=== PATIENT | male | born 1940 | race Caucasian/White ===

== ENCOUNTER 2019-02-13 14:28 | Inpatient (IN) | payer MEDICARE, OTHER ==
[~2019-02-13] VITALS: Ht 175.3 cm; Wt 70.3 kg
--- NOTE | 2019-02-13 14:30 | NUR ---
BIB RA 88 FROM HOME,C/O GENERALIZED WEAKNESS. CHANGED INTO GOWN, ATTACHED TO THE MONITOR. A/OX3, BREATHING EVEN AND UNLABORED, NO DISTRESS NOTED. DR. ZHAO AT BEDSIDE FOR EVAL.
[2019-02-13] MEDS ORDERED: ASPIRIN 81 MG TAB.CHEW PO ONE (15:00)
[2019-02-13 15:02] LABS: BASOPHILS # (AUTO) 0.1 /CMM (0.0-0.2); BASOPHILS % (AUTO) 1.1 % (0.0-2.0); EOSINOPHILS % (AUTO) 0.8 % (0.0-6.0); HEMATOCRIT 37 % (39-51); HEMOGLOBIN 12.6 g/dL (13.5-17.5); LYMPHOCYTES # (AUTO) 0.5 /CMM (0.8-4.8); LYMPHOCYTES % (AUTO) 10.1 % (20.0-44.0); MEAN CORPUSCULAR HGB CONC 34 g/dl (31.0-36.0); MEAN CORPUSCULAR VOLUME 89 fL (80-96); MONOCYTES # (AUTO) 0.6 /CMM (0.1-1.30); MONOCYTES % (AUTO) 11.5 % (2.0-12.0); NEUTROPHILS # (AUTO) 4.1 /CMM (1.8-8.9); NEUTROPHILS % (AUTO) 76.5 % (43.0-81.0); PLATELET COUNT (AUTO) 223 /CMM (150-450); RED BLOOD CELL COUNT(AUTO) 4.17 MIL/uL (4.5-6.0); WHITE BLOOD COUNT (AUTO) 5.4 K/uL (4.3-11.0)
[2019-02-13 15:09] LABS: CARBON DIOXIDE 30 mmol/L (21-32); CHLORIDE 102 mmol/L (98-107); CREATININE 2.1 mg/dL (0.6-1.3); GLUCOSE 160 mg/dL (74-106); POTASSIUM 3.4 mmol/L (3.5-5.1); SODIUM SERUM 139 mmol/L (136-145); UREA NITROGEN, BLOOD 37 mg/dL (7-18)
[2019-02-13] MEDS ORDERED: RANI150T8 PO (15:11)
[2019-02-13] MEDS ORDERED: TAMS-12 PO (15:11)
[2019-02-13] MEDS ORDERED: APIX2.5T PO (15:11)
[2019-02-13] MEDS ORDERED: FURO40TA5 PO (15:11)
[2019-02-13] MEDS ORDERED: ATOR40TA PO (15:11)
[2019-02-13] MEDS ORDERED: OXYB10TA PO (15:11)
[2019-02-13] MEDS ORDERED: METF-440 PO (15:13)
[2019-02-13 15:16] LABS: ALANINE AMINOTRANSFERASE 25 U/L (12-78); ALBUMIN 3.4 g/dL (3.4-5.0); ALKALINE PHOSPHATASE 104 U/L (46-116); ASPARTATE AMINOTRANSFERASE 17 U/L (15-37); BILIRUBIN,DIRECT 0.1 mg/dL (0.0-0.2); BILIRUBIN,TOTAL 0.7 mg/dL (0.2-1.0); CALCIUM, SERUM 8.3 mg/dL (8.5-10.1); TOTAL PROTEIN, SERUM 6.6 g/dL (6.4-8.2)
[2019-02-13] MEDS ORDERED: ASPIRIN 81 MG TAB.CHEW ONE (15:16)
[2019-02-13] MEDS ORDERED: AMIO400T5 PO (15:19)
[2019-02-13] MEDS ORDERED: AMLO10TA7 PO (15:19)
[2019-02-13] MEDS ORDERED: IV NS 0.9% 1,000 ML BAG IV ONE (15:30)
[2019-02-13 16:26] LABS: APPEARANCE,URINE Clear (CLEAR); BILIRUBIN,URINE Negative (NEGATIVE); BLOOD, URINE Moderate Ery/uL (NEGATIVE); COLOR,URINE Yellow (YELLOW); KETONES,URINE Negative (NEGATIVE); LEUKOCYTE ESTERASE ,URINE Negative (NEGATIVE); NITRITE, URINE Negative (NEGATIVE); PROTEIN,URINE Negative (NEGATIVE); UGLUCOSE Negative (NEGATIVE); UROBILINOGEN,URINE 0.2 EU/dL (0.2)
[2019-02-13 16:34] LABS: BACTERIA,URINE Few /HPF (None Seen); SQUAMOUS EPITHELIAL CELL,UR Few /HPF (None Seen); WBC,URINE 0-2 /HPF (0-3)
--- NOTE | 2019-02-13 16:48 | NUR ---
REPORT GIVEN TO DENIS SCHMID.
[2019-02-13] MEDS ORDERED: MAG HYDROX/AL HYDROX/SIMETH 30 ML UDC PO PRN (17:00)
[2019-02-13] MEDS ORDERED: MAGNESIUM HYDROXIDE 30 ML UDC PO PRN (17:00)
[2019-02-13] MEDS ORDERED: ONDANSETRON HCL/PF 4 MG/2 ML VIAL IVP PRN (17:00)
[2019-02-13] MEDS ORDERED: ACETAMINOPHEN 325 MG TABLET PO PRN (17:00)
[2019-02-13] MEDS ORDERED: Z GUARD REMEDY 2 OZ OINT TP PRN (17:00)
[2019-02-13] MEDS ORDERED: METFORMIN 500 MG TABLET PO SCH (17:00)
[2019-02-13] MEDS ORDERED: ZOLPIDEM TARTRATE 5 MG TABLET PO PRN (17:00)
--- NOTE | 2019-02-13 17:23 | NUR ---
SPEECH THERAPISTBUSINESS INSURANCE AGENT NOTES Received Patient via gurney from ER at this time. Patient is in bed resting. A/O x 4. VS stable with no acute distress. Breathing even and unlabored on room air with no respiratory distress. Denies pain at this time. Patient refuses skin assessment and states, "my skin is okay." Telemonitor in place and operational reading AV Pacing with BBB. 18g PIV on LAC clean, dry, intact and flushing well. Seen by Delano ALONSO and Yefri ALONSO. Safety precautions in place. Bed locked and set to lowest position with side rails x 2. Call light within reach. Will continue to monitor.
--- NOTE | 2019-02-13 18:00 | NUR ---
PATIENT TRANSFERRED TO ROOM 312-1 VIA ACLS PROTOCOL. PATIENT IN STABLE CONDITION, NAD. VSS.
--- NOTE | 2019-02-13 18:59 | NUR ---
RESIDENTIAL APPRAISER NOTES Per Yefri, bladder scan done and read >999ml. MD ordered to place BONE CATH. Unable to place BONE d/t history of prostate problems. Patient did not tolerate well and asked to stop. Will endorse to oncoming shift.
[2019-02-13 19:29] LABS: CREATININE, URINE 71.1 MG/DL (30.0-125.0); URINE TOTAL PROTEIN 9.4 mg/dL (0-11.9)
--- NOTE | 2019-02-13 19:30 | NUR ---
RN NOTES RECEIVED PT.A/OX4, AV PACING ON TELE MONITOR HR-70, DAYSHIFT NURSE HAD TRY TO INSERT A BONE CATHETER BUT THERE'S SOME RESISTANCE,PER PAT. HE HAS PROSTATE PROBLEM, WILL CALL MD TO GET AN ORDER FOR A COUDETTE, [id number], CALL LIGHT WITHIN REACH, CONTINUE TO MONITOR
[2019-02-13] MEDS: TAMSULOSIN 0.4 MG CAP.SR.24H PO SCH (19:35)
[2019-02-13] MEDS: OXYBUTYNIN CHLORIDE 5 MG TABLET PO SCH (19:35)
[2019-02-13 20:00] VITALS: BP 169/73
--- NOTE | 2019-02-13 20:29 | NUR ---
BOOTH OPERATOR CLOSING NOTES Patient in bed resting. A/O x 4. VS stable with no acute distress. Breathing even and unlabored on room air with no respiratory distress. Patient stated mild pain and discomfort from BONE CATH insertion. Will endorse to oncoming shift. Telemonitor in place and operational reading AV Pacing with BBB. 18g PIV on LAC clean, dry, intact and flushing well. Safety precautions in place. Bed locked and set to lowest position with side rails x 2. Call light within reach. Will endorse plan of care to oncoming shift.
[2019-02-13] MEDS: APIXABAN 2.5 MG TABLET PO SCH (20:36)
[2019-02-13] MEDS: HYDROCODONE/APAP 5/325MG 1 EACH TABLET PO PRN (20:37)
--- NOTE | 2019-02-13 20:40 | NUR ---
RN NOTES GOT AN ORDER FROM DR. HARGROVE BONE CATHETER ( PRERNA) WITH LIDOCAINE JEL , BECAUSE DAYSHIFT NURSE WAS TRYING TO INSERT A BONE CATHETER EARLIER AND THERE WAS A RESISTANCE AND PER PT. HE HAS BPH.. ORDER NOTED AND CARRIED OUT
[2019-02-13] MEDS ORDERED: LIDOCAINE 2% JEL 5 ML TUBE MC ONE (21:00)
--- NOTE | 2019-02-13 21:30 | NUR ---
RN NOTES ICU CHARGE NURSE CAME AND INSERTED THE BONE (COUDETTE), PT. TOELRATED FAIRLY
--- NOTE | 2019-02-13 23:21 | NUR ---
SHARMAINE NOTES COMPLAINED OF HEADACHE, TYLENOL 650MG PO GIVEN ORDERED Addendum: 02/13/19 at 2322 by WENDIE MCKEON RN WRONG PATIENT
[2019-02-14] VITALS: BP 139/66
[2019-02-14 03:13] LABS: BASOPHILS # (AUTO) 0.1 /CMM (0.0-0.2); BASOPHILS % (AUTO) 1.5 % (0.0-2.0); EOSINOPHILS % (AUTO) 1.7 % (0.0-6.0); HEMATOCRIT 36 % (39-51); HEMOGLOBIN 12.4 g/dL (13.5-17.5); LYMPHOCYTES # (AUTO) 0.7 /CMM (0.8-4.8); MEAN CORPUSCULAR HGB CONC 34 g/dl (31.0-36.0); MEAN CORPUSCULAR VOLUME 89 fL (80-96); MONOCYTES # (AUTO) 0.6 /CMM (0.1-1.30); MONOCYTES % (AUTO) 12.5 % (2.0-12.0); NEUTROPHILS # (AUTO) 3.7 /CMM (1.8-8.9); NEUTROPHILS % (AUTO) 71.3 % (43.0-81.0); PLATELET COUNT (AUTO) 199 /CMM (150-450); RED BLOOD CELL COUNT(AUTO) 4.07 MIL/uL (4.5-6.0); WHITE BLOOD COUNT (AUTO) 5.1 K/uL (4.3-11.0)
[2019-02-14 03:37] LABS: ALANINE AMINOTRANSFERASE 20 U/L (12-78); ALBUMIN 3.1 g/dL (3.4-5.0); ALKALINE PHOSPHATASE 93 U/L (46-116); ASPARTATE AMINOTRANSFERASE 15 U/L (15-37); BILIRUBIN,TOTAL 0.6 mg/dL (0.2-1.0); CALCIUM, SERUM 8.1 mg/dL (8.5-10.1); CARBON DIOXIDE 28 mmol/L (21-32); CHLORIDE 103 mmol/L (98-107); CREATININE 1.8 mg/dL (0.6-1.3); GLUCOSE 110 mg/dL (74-106); MAGNESIUM 1.7 mg/dL (1.8-2.4); PHOSPHORUS 3.6 mg/dL (2.5-4.9); POTASSIUM 3.4 mmol/L (3.5-5.1); SODIUM SERUM 140 mmol/L (136-145); TOTAL PROTEIN, SERUM 6.1 g/dL (6.4-8.2); UREA NITROGEN, BLOOD 30 mg/dL (7-18)
[2019-02-14 03:46] LABS: CHOLESTEROL 124 mg/dL (<200); CREATINE KINASE, TOTAL 45 U/L (39-308); HDL CHOLESTEROL 34 mg/dL (40-60); LDL 71 mg/dL (0-99); THYROID STIMULATING HORMONE 1.633 uIU/mL (0.358-3.74); TRIGLYCERIDES 105 mg/dL (30-150)
[2019-02-14 04:00] VITALS: BP 134/68
--- NOTE | 2019-02-14 06:43 | NUR ---
RN NOTES SLEEPING BUT AROUSABLE, DENIES PAIN, NO SON, MORNING CARE RENDERED, CALL LIGHT WITHIN REACH, [id number], PT. NEEDS ATTENDED
--- NOTE | 2019-02-14 07:39 | NUR ---
WHEEL INSPECTOR NOTES PATIENT IN BED SLEEPING COMFORTABLY, BREATHING ON ROOM AIR SATURATING ABOVE 95% SPO2. PATIENT BREATHING IS EVEN AND UNLABORED. PATIENT IN NO ACUTE DISTRESS. NO SOB NOTED. BONE CATHETER HANGING TO GRAVITY. SAFETY PRECAUTIONS IN PLACE. PATIENT ON CARDIAC MONITORING. PATIENT BED IS LOCKED AND IN LOWEST POSITION. CALL LIGHT WITHIN REACH. WILL CONTINUE TO MONITOR.
[2019-02-14 08:00] VITALS: BP 144/71
[2019-02-14] MEDS ORDERED: FUROSEMIDE 40 MG TABLET PO SCH (09:00)
[2019-02-14] MEDS ORDERED: Magnesium 1GM/D5W 100ML PREMIX 100 ML IV SCH (09:19)
[2019-02-14] MEDS: APIXABAN 2.5 MG TABLET PO SCH ×2 (09:19→17:09)
[2019-02-14] MEDS: ATORVASTATIN 40 MG TABLET PO SCH (09:21)
[2019-02-14] MEDS: AMIODARONE HCL 200 MG TABLET PO SCH (09:22)
[2019-02-14] MEDS: OXYBUTYNIN CHLORIDE 5 MG TABLET PO SCH (09:22)
[2019-02-14] MEDS: AMLODIPINE BESYLATE 10 MG TABLET PO SCH (09:22)
[2019-02-14] MEDS ORDERED: POTASSIUM CL. PREMIX PERIPHER. 50 ML IV SCH (09:37)
[2019-02-14 15:17] LABS: APPEARANCE,URINE CLEAR (CLEAR); BILIRUBIN,URINE NEGATIVE (NEGATIVE); BLOOD, URINE 3+ Ery/uL (NEGATIVE); COLOR,URINE YELLOW (YELLOW); KETONES,URINE NEGATIVE (NEGATIVE); LEUKOCYTE ESTERASE ,URINE TRACE (NEGATIVE); NITRITE, URINE NEGATIVE (NEGATIVE); PROTEIN,URINE NEGATIVE (NEGATIVE); UGLUCOSE NEGATIVE (NEGATIVE)
[2019-02-14 15:36] LABS: BACTERIA,URINE Rare /HPF (None Seen); RBC,URINE 21-50 /HPF (0-2); WBC,URINE 0-2 /HPF (0-3)
[2019-02-14 16:00] VITALS: BP 134/64
[2019-02-14 17:00] VITALS: BP 133/68
[2019-02-14] MEDS: TAMSULOSIN 0.4 MG CAP.SR.24H PO SCH (17:04)
--- NOTE | 2019-02-14 19:06 | NUR ---
MS RN CLOSING NOTES PATIENT IN BED RESTING COMFORTABLY WATCHING TV. PATIENT BREATHING ON ROOM AIR SATURATING >95% SPO2. PATIENT IN NO ACUTE DISTRESS. NO SOB NOTED. PATIENT BREATHING IS EVEN AND UNLABORED. PATIENT BONE CATHETER HANGING TO GRAVITY DRAINING 400ML CLEAR AND YELLOW. ALL NURSING NEEDS MET. PATIENT VERBALIZED NEEDS AND CONCERNS. NEEDS ADDRESSED. PATIENT CALL LIGHT WITHIN REACH. PATIENT BED LOCKED AND IN LOWEST POSITION. WILL ENDORSE CARE TO PM SHIFT FOR OFELIA.
--- NOTE | 2019-02-14 19:55 | NUR ---
RN NOTES RECEIVED PATIENT AWAKE, CALM, RESTING COMFORTABLY, ALERT ORIENTED X3, NO SIGNS OF ACUTE DISTRESS, DENIES ANY PAIN AT THIS TIME, IV ACCESS INTACT AND PATENT ON HIS LEFT AC G#18, BONE CATHETER INTACT AND PATENT DRAINING TO A DARK YELLOW URINE OUTPUT, NO SEDIMENTS NOTED AT THIS TIME, SAFETY MEASURES IN PLACE, BED IN OW LOCKED POSITION, CALL LIGHT WITHIN EASY REACH, REPOSITIONED FOR COMFORT, ALL NEEDS ATTENDED, WILL CONTINUE TO MONITOR ACCORDINGLY.
[2019-02-14 20:00] VITALS: BP 128/68
--- NOTE | 2019-02-15 02:00 | NUR ---
RN NOTES ALL NEEDS ATTENDED AND MET, PATIENT IS RESTING COMFORTABLY, SAFETY MEASURES IN PLACE,CALL LIGHT WITHIN EASY REACH. ENDORSED TO SHARMAINE CONNER FOR CONTINUITY OF CARE.
--- NOTE | 2019-02-15 02:05 | NUR ---
RN OPEN NOTES RECEIVED PATIENT RESTING IN BED. A/OX3. NO SIGNS OF DISTRESS OR DISCOMFORT. BREATHING EVEN AND UNLABORED. IV ACCESS IN LAC, PATENT AND INTACT, NO SIGNS OF REDNESS OR INFILTRATION. HAS F/C INTACT, DRAINING CLEAR PATTY FLUID. BED IN LOW LOCKED POSITION WITH SIDE RAILS X2. CALL LIGHT WITHIN REACH. WILL CONTINUE TO MONITOR.
--- NOTE | 2019-02-15 07:27 | NUR ---
RN OPENING NOTE PT WAS RECEIVED IN BED AT LOWEST AND LOCKED WITH SIDE RAILS UPX2, A/O X3 BREATHING EVEN AND UNLABORED ON RA, NO S/S OF ANY DISTRESS OR PAIN NOTED AT THIS TIME, IV IS PATENT AND INTACT, BONE IN PLACE AND DRAINING, SAFETY PRECAUTIONS IN PLACE, CALL LIGHT WITHIN REACH, WILL MONITOR ACCORDINGLY
--- NOTE | 2019-02-15 07:34 | NUR ---
RN CLOSING NOTES PATIENT AWAKE RESTING IN BED. A/OX3. NO SIGNS OF DISTRESS OR DISCOMFORT. BREATHING EVEN AND UNLABORED. IV ACCESS IN LAC, PATENT AND INTACT, NO SIGNS OF REDNESS OR INFILTRATION. HAS F/C INTACT, DRAINING CLEAR PATTY FLUID. ALL NEEDS MET. NO SIGNIFICANT CHANGES THROUGH THE NIGHT. BED IN LOW LOCKED POSITION WITH SIDE RAILS X2. CALL LIGHT WITHIN REACH. ENDORSED TO AM SHIFT FOR OFELIA.
[2019-02-15 08:07] LABS: T3, FREE 1.6 pg/mL (2.0-4.4)
[2019-02-15] MEDS: AMLODIPINE BESYLATE 10 MG TABLET PO SCH (08:08)
[2019-02-15] MEDS: ATORVASTATIN 40 MG TABLET PO SCH (08:08)
[2019-02-15] MEDS: APIXABAN 2.5 MG TABLET PO SCH ×2 (08:09→17:23)
[2019-02-15] MEDS: AMIODARONE HCL 200 MG TABLET PO SCH (08:09)
[2019-02-15] MEDS: OXYBUTYNIN CHLORIDE 5 MG TABLET PO SCH (08:09)
[2019-02-15 08:39] VITALS: BP 140/70
[2019-02-15 12:06] LABS: PTH, INTACT 51 pg/mL (15-65)
[2019-02-15 15:54] VITALS: BP 124/64
[2019-02-15] MEDS: TAMSULOSIN 0.4 MG CAP.SR.24H PO SCH (17:23)
--- NOTE | 2019-02-15 18:32 | NUR ---
RN CLOSING NOTE PT IN BED AT LOWEST AND LOCKED WITH SIDE RAILS UP X2, A/O X3-4 BREATHING EVEN AND UNLABORED ON RA, NO S/S OF ANY DISTRESS, NO CURRENT COMPLAIN OF PAIN AT THIS TIME, IV IS PATENT AND INTACT, BONE IN PLACE AND DRAINING, SAFETY PRECAUTIONS IN PLACE, CALL LIGHT WITHIN REACH, ALL NEEDS ATTENDED TO, WILL ENDORSE TO NIGHT RN FOR OFELIA.
[2019-02-15 20:00] VITALS: BP_SYST 137; BP_SYST 157; BP_DIAS 66
--- NOTE | 2019-02-15 20:00 | NUR ---
MS/RN OPENING NOTES PATIENT IN BED, AWAKE, ALERT X3, ABLE TO VERBALIZE NEEDS, PROVIDED SOME SNACKS, RESPIRATIONS EVEN AND UNLABORED, DENIES PAIN, BED LOCKED, CALL LIGHTS WITHIN REACH. WILL MONITOR .DISCUSSED PLAN OF CARE, FAMILY SON AT BEDSIDE AND GAVE CONTACT NUMBER FOR ANY COMMUNICATION NEEDS, WILL MONITOR.
--- NOTE | 2019-02-16 04:28 | NUR ---
MS/RN NOTES PATIENT IV SITE REDDENED REMOVED IV LINE ON LEFT AC. APPLIED SOME COOLING MEASURES ON SITE FOR COMFORT. WILL MONITOR.
--- NOTE | 2019-02-16 04:36 | NUR ---
MS/RN NOTES PATIENT IV SITE REMOVED DUE TO REDNESS AND DISCOMFORT, REQUESTED TO HOLD IV INSERTION AT THIS TIME AND WAIT IN A LITTLE WHILE.
--- NOTE | 2019-02-16 06:48 | NUR ---
312-1 TELE/RN NOTES PATIENT ABLE TO VERBALIZE NEEDS, ASSISTED FOR SAFETY, ALL NEEDS ATTENDED. MONITORED FOR ANY CHANGES. BED LOCKED, CALL LGHTS WITHN REACH. WILL ENDORSE TO AM RN FOR OFELIA.
[2019-02-16 08:41] VITALS: BP 142/67
[2019-02-16] MEDS: ATORVASTATIN 40 MG TABLET PO SCH (09:32)
[2019-02-16 09:33] VITALS: BP 142/67
[2019-02-16] MEDS: AMLODIPINE BESYLATE 10 MG TABLET PO SCH (09:33)
[2019-02-16] MEDS: AMIODARONE HCL 200 MG TABLET PO SCH (09:33)
[2019-02-16] MEDS: APIXABAN 2.5 MG TABLET PO SCH (09:33)
[2019-02-16] MEDS: OXYBUTYNIN CHLORIDE 5 MG TABLET PO SCH (09:34)
--- NOTE | 2019-02-16 10:58 | NUR ---
MS/RN NOTE REPORT GIVE TO SHARMAINE REEVES.
--- NOTE | 2019-02-16 11:00 | NUR ---
MS RN RECEIVED REPORT FROM KALANI, PATIENT IS AWAKE,ALERT,ORIENTED X4,NOT IN ANY FORM OF DISTRESS, RESPIRATIONS EVEN AND UNLABORED,NO SOB NOTED, PATIENT WILL BE DISCHARGE TO SNF LATER.
[2019-02-16] MEDS: HYDROCODONE/APAP 5/325MG 1 EACH TABLET PO PRN (12:53)
--- NOTE | 2019-02-16 13:40 | NUR ---
MS RN REPORT GIVEN TO [facility] RN, DISCHARGE INSTRUCTIONS GIVEN, TRANSFERRED TO SNF, NO DISTRESS NOTED.
[2019-02-17 08:10] LABS: *SPE A/G RATIO 1.1 (0.7-1.7); *SPE ALBUMIN 3.1 g/dL (2.9-4.4); *SPE ALPHA-1-GLOBULIN 0.2 g/dL (0.0-0.4); *SPE ALPHA-2-GLOBULIN 1.1 g/dL (0.4-1.0); *SPE BETA GLOBULIN 0.7 g/dL (0.7-1.3); *SPE GLOBULIN, TOTAL 2.7 g/dL (2.2-3.9); *SPE M-SPIKE Not Observed g/dL (Not Observed); *SPEGAMMA GLOBULIN 0.6 g/dL (0.4-1.8)
== END 2019-02-16 13:33 | DRG 73 ==
LOC: ER 14:31 → TELE 17:25 → MED 02-14 08:29
PROVIDERS: ADMIT Internal Medicine; ATTEND Internal Medicine
DX: G90.8 Other disorders of autonomic nervous system (principal); N17.0 Acute kidney failure with tubular necrosis; I69.351 Hemiplegia and hemiparesis following cerebral infarction affecting right dominant side; I25.10 Atherosclerotic heart disease of native coronary artery without angina pectoris; E78.5 Hyperlipidemia, unspecified; N40.0 Benign prostatic hyperplasia without lower urinary tract symptoms; Z95.1 Presence of aortocoronary bypass graft; Z79.84 Long term (current) use of oral hypoglycemic drugs; Z79.899 Other long term (current) drug therapy; N18.9 Chronic kidney disease, unspecified; I12.9 Hypertensive chronic kidney disease with stage 1 through stage 4 chronic kidney disease, or unspecified chronic kidney disease; E11.22 Type 2 diabetes mellitus with diabetic chronic kidney disease; Z95.0 Presence of cardiac pacemaker; Z79.01 Long term (current) use of anticoagulants; E87.6 Hypokalemia; I48.91 Unspecified atrial fibrillation; W18.30XA Fall on same level, unspecified, initial encounter; Y92.129 Unspecified place in nursing home as the place of occurrence of the external cause; R26.9 Unspecified abnormalities of gait and mobility; W19.XXXA Unspecified fall, initial encounter
CPT/HCPCS: 36415; 70450-TC; 71045-TC; 76770-TC; 80048-TC; 80053-TC; 80061-TC; 80076-TC; 81000-TC; 82550-TC; 82570-TC; 83735-TC; 83970; 84100-TC; 84155; 84155-TC; 84165; 84300-TC; 84439-TC; 84443-TC; 84481; 84484-TC; 85025-TC; 87081-TC; 93307-TC; 93880-TC; 97116-TC; 97530-TC; G0378; J3475; J3480; J7030; J7050

== ENCOUNTER 2020-10-03 07:21 | Emergency (ER) | payer MEDICARE, OTHER ==
[~2020-10-03] VITALS: Ht 172.7 cm; Wt 82.1 kg
[~2020-10-03 07:21] MED LIST: AMIO400T5 PO; AMLO-213 PO; APIX2.5T PO; ATOR40TA PO; FURO40TA5 PO; METF-440 PO; OXYB10TA30 PO; RANI150T8 PO; TAMS-12 PO
--- NOTE | 2020-10-03 07:21 | NUR ---
PT [id number] FOR EPIGASTRIC PAIN, DIARRHEA THAT STARTED THIS MORNING. PT IS AAOX3, NOT IN RESPIRATORY DISTRESS, HOOKED TO LENS MOLD SETTER, KEPT RESTED AND COMFORTABLE. WILL CONTINUE TO MONITOR.
--- NOTE | 2020-10-03 07:27 | NUR ---
PT SEEN AND EXAMINED BY .
--- NOTE | 2020-10-03 07:40 | NUR ---
ER PHLEB AT BEDSIDE FOR BLOOD DRAW.
--- NOTE | 2020-10-03 07:44 | NUR ---
ENGRAVER COPPERPLATE AT BEDSIDE FOR XRAY.
[2020-10-03 08:12] LABS: BASOPHILS # (AUTO) 0.1 /CMM (0.0-0.2); BASOPHILS % (AUTO) 1.1 % (0.0-2.0); EOSINOPHILS % (AUTO) 2.7 % (0.0-6.0); HEMATOCRIT 37 % (39-51); HEMOGLOBIN 12.3 g/dL (13.5-17.5); LYMPHOCYTES % (AUTO) 12.6 % (20.0-44.0); MEAN CORPUSCULAR HGB CONC 33 g/dl (31.0-36.0); MEAN CORPUSCULAR VOLUME 92 fL (80-96); MONOCYTES # (AUTO) 0.9 /CMM (0.1-1.30); NEUTROPHILS # (AUTO) 5.5 /CMM (1.8-8.9); NEUTROPHILS % (AUTO) 71.6 % (43.0-81.0); PLATELET COUNT (AUTO) 231 /CMM (150-450); RED BLOOD CELL COUNT(AUTO) 4.05 MIL/uL (4.5-6.0); WHITE BLOOD COUNT (AUTO) 7.7 K/uL (4.3-11.0)
[2020-10-03 08:25] LABS: CALCIUM, SERUM 8.7 mg/dL (8.5-10.1); CARBON DIOXIDE 26 mmol/L (21-32); CHLORIDE 105 mmol/L (98-107); CREATININE 1.6 mg/dL (0.6-1.3); GLUCOSE 122 mg/dL (74-106); POTASSIUM 3.9 mmol/L (3.5-5.1); SODIUM SERUM 139 mmol/L (136-145); UREA NITROGEN, BLOOD 24 mg/dL (7-18)
--- NOTE | 2020-10-03 08:35 | NUR ---
URINE SPECIMEN COLLECTED AND SENT TO LAB.
[2020-10-03 08:52] LABS: BILIRUBIN,URINE NEGATIVE (NEGATIVE); COLOR,URINE YELLOW (YELLOW); LEUKOCYTE ESTERASE ,URINE NEGATIVE (NEGATIVE); NITRITE, URINE NEGATIVE (NEGATIVE); PH,URINE 5.5 (5.0-8.0); PROTEIN,URINE NEGATIVE (NEGATIVE); UGLUCOSE NEGATIVE (NEGATIVE); UROBILINOGEN,URINE 0.2 EU/dL (0.2)
[2020-10-03] MEDS ORDERED: MAG HYDROX/AL HYDROX/SIMETH 30 ML UDC PO ONE (09:30)
[2020-10-03] MEDS ORDERED: LIDOCAINE VISCOUS 2% UD 15 ML UDC ONE (09:30)
[2020-10-03] MEDS ORDERED: MAG HYDROX/AL HYDROX/SIMETH 30 ML UDC ONE (09:30)
[2020-10-03] MEDS ORDERED: LIDOCAINE VISCOUS 2% UD 15 ML UDC MM ONE (09:30)
[2020-10-03 10:29] LABS: ALANINE AMINOTRANSFERASE 12 U/L (12-78); ALBUMIN 3.3 g/dL (3.4-5.0); ALKALINE PHOSPHATASE 89 U/L (46-116); ASPARTATE AMINOTRANSFERASE 12 U/L (15-37); BILIRUBIN,DIRECT 0.1 mg/dL (0.0-0.2); BILIRUBIN,TOTAL 0.3 mg/dL (0.2-1.0); LIPASE 119 U/L (73-393); TOTAL PROTEIN, SERUM 6.8 g/dL (6.4-8.2)
[2020-10-03] MEDS ORDERED: OMEP40CA13 PO (10:38)
--- NOTE | 2020-10-03 11:15 | NUR ---
IV removed. Catheter intact and site benign. Pressure and 4x4 applied to site. No bleeding noted. Patient discharged to home in stable condition. Written and verbal after care instructions given. Patient verbalizes understanding of instruction.
[2020-10-03 11:16] VITALS: BP 131/78
== END 2020-10-03 11:16 | disposition home or self-care (01) ==
LOC: ER 07:26
DX: R10.13 Epigastric pain (principal); R19.7 Diarrhea, unspecified; I10 Essential (primary) hypertension; E11.9 Type 2 diabetes mellitus without complications; Z86.73 Personal history of transient ischemic attack (TIA), and cerebral infarction without residual deficits; Z95.0 Presence of cardiac pacemaker; Z79.899 Other long term (current) drug therapy; Z79.84 Long term (current) use of oral hypoglycemic drugs
CPT/HCPCS: 36415; 71045-TC; 80048-TC; 80076-TC; 83690-TC; 84484-TC; 85025-TC